=== PATIENT | female | born 1975 | race Caucasian/White ===

== ENCOUNTER 2016-09-28 16:12 | Emergency (ER) | payer BC ==
[~2016-09-28] VITALS: Ht 162.6 cm; Wt 74.0 kg
[2016-09-28 16:16] VITALS: Ht 162.6 cm; Wt 74.0 kg
[2016-09-28] MEDS ORDERED: HYDROCODONE/APAP (5/325) TAB PO ONE (17:30)
[2016-09-28 17:36] LABS: ADD SCAN DIFF NO
[2016-09-28 17:38] LABS: BASOPHIL # 0.1 10^3/ul (0.0-0.1); BASOPHILS % 0.9 % (0.0-2.0); EOSINOPHILS # 0.2 10^3/ul (0.0-0.5); EOSINOPHILS % 2.9 % (0.0-7.0); HEMATOCRIT 37.3 % (37.0-47.0); LYMPHOCYTES % 25.4 % (15.0-51.0); MEAN CORPUSCULAR HEMOGLOBIN 28.5 pg (29.0-33.0); MEAN CORPUSCULAR HGB CONC 32.2 g/dl (32.0-37.0); MEAN CORPUSCULAR VOLUME 88.6 fl (82.0-101.0); MEAN PLATELET VOLUME 10.7 fl (7.4-10.4); MONOCYTE # 0.5 10^3/ul (0.3-0.9); MONOCYTES % 5.8 % (0.0-11.0); NEUTROPHIL # 5.1 10^3/ul (1.6-7.5); NEUTROPHILS % 64.9 % (39.0-77.0); PLATELET COUNT 257 10^3/UL (140-415); RED BLOOD COUNT 4.21 10^6/ul (4.20-5.40); RED CELL DISTRIBUTION WIDTH 13.3 % (11.5-14.5); WHITE BLOOD COUNT 7.9 10^3/ul (4.8-10.8)
[2016-09-28 18:03] LABS: ADD UMIC YES; URINE BILIRUBIN (Dip) NEGATIVE (NEGATIVE); URINE BLOOD (Dip) 3+ (NEGATIVE); URINE COLOR LT. YELLOW (YELLOW); URINE GLUCOSE (Dip) NEGATIVE (NEGATIVE); URINE KETONES (Dip) NEGATIVE (NEGATIVE); URINE LEUKOCYTE ESTERASE (Dip) NEGATIVE (NEGATIVE); URINE NITRITE (Dip) NEGATIVE (NEGATIVE); URINE TOTAL PROTEIN (Dip) NEGATIVE (NEGATIVE); URINE UROBILINOGEN (Dip) 0.2 E.U./dL (0.1-1.0)
[2016-09-28 18:03] LABS: ALBUMIN 4.3 g/dl (3.3-4.9)
[2016-09-28 18:04] LABS: POTASSIUM 4.8 mmol/L (3.5-5.1)
[2016-09-28 18:06] LABS: ALBUMIN/GLOBULIN RATIO 1.3; BILIRUBIN,INDIRECT 0.1 mg/dl (0-1.1); BILIRUBIN,TOTAL 0.1 mg/dl (0.2-1.3); CREATININE 0.73 mg/dl (0.44-1.00); TOTAL PROTEIN 7.6 g/dl (6.1-8.1)
[2016-09-28 18:07] LABS: CALCIUM 9.5 mg/dl (8.4-10.2)
[2016-09-28 18:21] LABS: SQUAMOUS EPITHELIAL CELL,UR FEW
[2016-09-28 18:22] LABS: BACTERIA,URINE FEW
--- NOTE | 2016-09-28 18:49 | ERD ---
ER Documentation Chief Complaint Date/Time DATE: 09/28/16 TIME: 18:49 Chief Complaint "L SIDE BODY PAIN, FROM ABDOMEN TO LEG FOR PAST WEEK" HPI This 41-year-old female who presents to the emergency department today complaining of left-sided abdominal pain. States she also has some numbness and tingling in her left leg. States she also has some facial numbness on the left side of her face. States that this started today but she did have similar symptoms 2 weeks ago that went away. Denies any fevers or chills, vomiting, diarrhea. States she is currently on her menstrual cycle. ROS All systems reviewed and are negative except as per history of present illness. Medications Home Meds Active Scripts Acetaminophen* (Tylophen*) 500 Mg Capsule, 1 CAP PO Q6H Y for PAIN AND OR ELEVATED TEMP, #30 CAP Prov:MARILYN MUELLER PA-C 09/28/16 Naproxen* (Naprosyn*) 500 Mg Tablet, 500 MG PO BID Y for PAIN AND/OR INFLAMMATION, #30 TAB Prov:MARILYN MUELLER PA-C 09/28/16 Tramadol HCl (Tramadol HCl) 50 Mg Tablet, 50 MG PO Q4 Y for PAIN, #20 TAB Prov:MARILYN MUELLER PA-C 09/28/16 Allergies Allergies: Coded Allergies: No Known Allergy (Unverified , 01/06/14) PMhx/Soc History of Surgery: Yes (tube ligation?) Anesthesia Reaction: No Hx Neurological Disorder: No Hx Respiratory Disorders: No Hx Cardiac Disorders: Yes (MD 2013) Hx Psychiatric Problems: No Hx Miscellaneous Medical Probl: No Hx Alcohol Use: No Hx Substance Use: No Hx Tobacco Use: No Physical Exam Vitals Vital Signs Date Time Temp Pulse Resp B/P Pulse Ox O2 Delivery O2 Flow Rate FiO2 09/28/16 16:16 98.6 72 18 127/79 98 Physical Exam Const: No acute distress Head: Atraumatic Eyes: Normal Conjunctiva. PERRLA. EOM intact. ENT: Normal External Ears, Nose and Mouth. Neck: Full range of motion..~ No meningismus. Resp: Clear to auscultation bilaterally Cardio: Regular rate and rhythm, no murmurs Abd: Soft, left lower quadrant and left-sided pelvic pain non distended. Normal bowel sounds. No right lower quadrant pain. No tenderness McBurney's Skin: No petechiae or rashes Back: Left-sided paraspinal tenderness. No midline tenderness. Ext: No cyanosis, or edema Neur: Awake and alert. Cranial nerves II through XII intact. No gait ataxia. Psych: Normal Mood and Affect Result Diagram: 09/28/16 1728 09/28/16 1728 Results 24 hrs Laboratory Tests Test 09/28/16 17:28 09/28/16 17:43 White Blood Count 7.910^3/ul Red Blood Count 4.2110^6/ul Hemoglobin 12.0g/dl Hematocrit 37.3% Mean Corpuscular Volume 88.6fl Mean Corpuscular Hemoglobin 28.5pg Mean Corpuscular Hemoglobin Concent 32.2g/dl Red Cell Distribution Width 13.3% Platelet Count 78527^3/UL Mean Platelet Volume 10.7fl Neutrophils % 64.9% Lymphocytes % 25.4% Monocytes % 5.8% Eosinophils % 2.9% Basophils % 0.9% Nucleated Red Blood Cells % 0.0/100WBC Neutrophils # 5.110^3/ul Lymphocytes # 2.010^3/ul Monocytes # 0.510^3/ul Eosinophils # 0.210^3/ul Basophils # 0.110^3/ul Nucleated Red Blood Cells # 0.010^3/ul Sodium Level 140mmol/L Potassium Level 4.8mmol/L Chloride Level 102mmol/L Carbon Dioxide Level 27mmol/L Anion Gap 16 Blood Urea Nitrogen 21mg/dl Creatinine 0.73mg/dl Glucose Level 88mg/dl Calcium Level 9.5mg/dl Total Bilirubin 0.1mg/dl Direct Bilirubin 0.00mg/dl Indirect Bilirubin 0.1mg/dl Aspartate Amino Transf (AST/SGOT) 25IU/L Alanine Aminotransferase (ALT/SGPT) 31IU/L Alkaline Phosphatase 89IU/L Total Protein 7.6g/dl Albumin 4.3g/dl Globulin 3.30g/dl Albumin/Globulin Ratio 1.30 Lipase 89U/L Urine Color LT. YELLOW Urine Clarity CLEAR Urine pH 6.0 Urine Specific [place] <=1.005 Urine Ketones NEGATIVE Urine Nitrite NEGATIVE Urine Bilirubin NEGATIVE Urine Urobilinogen 0.2 E.U./dL Urine Leukocyte Esterase NEGATIVE Urine Microscopic RBC 10-25/HPF Urine Microscopic WBC NONE SEEN/HPF Urine Squamous Epithelial Cells FEW Urine Bacteria FEW Urine Hemoglobin 3+ Urine Glucose NEGATIVE% Urine Total Protein NEGATIVE Current Medications Medications (Trade) Dose Ordered Sig/Bert Route PRN Reason Start Time Stop Time Status Last Admin Dose Admin Acetaminophen/ Hydrocodone Bitart ([place] (5/325)) 1 tab ONCE ONCE PO 09/28/16 17:30 09/28/16 17:31 DC 09/28/16 17:32 DIAGNOSTIC IMAGING REPORT Patient: GRETA SUAREZ : 1975 Age: 41 Sex: F MR #: [id number] DOS: 09/28/16 1711 Ordering MD: MARILYN MUELLER PA-C Location: [facility] Room/Bed: PROCEDURE: CT abdomen and pelvis without contrast. CLINICAL INDICATION: Abdominal pain TECHNIQUE: CT scan of the abdomen and pelvis without contrast was performed. Sagittal and coronal reformatted images were obtained from the axial source images. CTDI = 13.06 mGy; DLP = 669.21 mGy-cm COMPARISON: None. FINDINGS: Visualized lower thorax: Trace dependent subsegmental atelectasis of the lower lobes is present. There is no evidence for pleural effusion. Liver, gallbladder, pancreas and spleen: The liver is normal and size, contour and attenuation. There is no evidence for a liver mass or ductal dilatation. The gallbladder is unremarkable. No common bile duct abnormality is demonstrated. The pancreas is unremarkable. The spleen is normal in size. Adrenal glands and genitourinary system: The adrenal glands are normal bilaterally. The kidneys are normal and size, contour and attenuation with no evidence for solid masses, calculi or hydronephrosis, an incidental simple cyst of the right upper pole measures approximately 2.7 cm. The ureters are unremarkable. No urinary bladder abnormality is demonstrated. A Nabothian cyst of the cervix is visualized, the uterus is otherwise unremarkable. A probable small right ovarian/adnexal cyst of 9 mm is suggested. No free fluid within the cul-de-sac is seen. Gastrointestinal system: The stomach is normal in caliber with no abnormality of significance. The small bowel is normal in caliber with no ileus, obstruction or wall thickening. The appendix and surrounding fat are within the limits of normal. The colon shows no evidence for wall thickening or acute abnormality. There is no evidence for colitis or diverticulitis. Peritoneum, retroperitoneum, lymph nodes and vessels: The abdominal aorta is normal in caliber. There is no evidence for atherosclerotic calcification. The inferior vena cava is unremarkable. There is no evidence for adenopathy or mass. There is no ascites. No pneumoperitoneum is present. Osseous structures and musculoskeletal findings: There is no fracture, lytic or blastic lesion. Severe degenerative disk narrowing at L5-S1 is present. Note is made of Tarlov cysts of the sacrum No muscular abnormality or soft tissue pathology is present. RPTAT:HJJR IMPRESSION: 1. No evidence of acute intra-abdominal or intrapelvic pathology. 2. Incidental right renal cyst. 3. Probable right ovarian/adnexal cyst of 9 mm. 4. Suspected incidental Nabothian cyst. 5. Degenerative disk disease at L5-S1, Tarlov cysts of the sacrum. Physician Kacie Date Time Electronically viewed and signed by Estuardo Choi Physician on 09/28/2016 20:03 JR/ CC: MARLIYN MUELLER PA-C/MDM Is a 41-year-old female presents to the emergency department today with multiple complaints. Patient was complaining of facial numbness on the left side of her face as well as left leg numbness. Patient has no focal neurologic deficits. She has no gait ataxia. Do not feel the patient requires a head CT scan at this time. Low suspicion for acute hemorrhage, mass, abscess. Low suspicion for Zhou's palsy. Patient is very talkative in the exam room and was laughing at various points. Patient's leg paresthesia may be related to back pain however she has had no trauma and I do not feel that she requires imaging at this time. Patient is able to ambulate without difficulty Patient's abdominal exam shows some tenderness on the left side of her abdomen and into the left side of her pelvis. She indicates she is currently on her menstrual cycle. Patient was also complaining of flank pain that radiated around to her left side of her abdomen and therefore I did obtain laboratory work as well as a UA and CT abdomen pelvis noncontrast Laboratory work shows no elevated white blood cell count. She is not anemic. Platelets are within normal limits. Electrolytes are within normal limits. Glucose within normal limits. Liver functions within normal limits. Lipase within normal limits. UA is negative for infection. Urine test is negative CT abdomen pelvis noncontrast shows no evidence of acute intra-abdominal intrapelvic pathology. There is incidental right renal cyst. There is a probable right ovarian adnexal cyst of 9 mm. There is a suspected incidental nabothian cyst. There is degenerative disc disease L5 and S1. Patient has left sided abdominal and pelvic pain of uncertain etiology. There is no evidence to suggest acute surgical abdomen. Her paresthesia in her leg is possibly due to degenerative disc disease. Patient was given [place] for pain. Patient was given a prescription for tramadol , Naprosyn and Tylenol for pain. At this time the patient is stable for discharge and outpatient management. Patient should follow up with their PCP in the next 1-2 days. They may return to the emergency department sooner for any persistent or worsening of symptoms. Patient understood and agreed with the plan. Departure Diagnosis: Primary Impression: Abdominal pain Abdominal location: left lower quadrant Qualified Code: R10.32 - Left lower quadrant pain Additional Impression: Paresthesia Condition: Fair MARILYN MUELLER PA-C September 28, 2016 18:49
--- NOTE | 2016-09-28 20:03 | RADRPT ---
PROCEDURE: CT abdomen and pelvis without contrast. CLINICAL INDICATION: Abdominal pain TECHNIQUE: CT scan of the abdomen and pelvis without contrast was performed. Sagittal and coronal reformatted images were obtained from the axial source images. CTDI = 13.06 mGy; DLP = 669.21 mGy-c m COMPARISON: None. FINDINGS: Visualized lower thorax: Trace dependent subsegmental atelectasis of the lower lobes is present. T here is no evidence for pleural effusion. Liver, gallbladder, pancreas and spleen: The liver is normal and size, contour and attenuation. Th ere is no evidence for a liver mass or ductal dilatation. The gallbladder is unremarkable. No comm on bile duct abnormality is demonstrated. The pancreas is unremarkable. The spleen is normal in si ze. Adrenal glands and genitourinary system: The adrenal glands are normal bilaterally. The kidneys are normal and size, contour and attenuation with no evidence for solid masses, calculi or hydronephros is, an incidental simple cyst of the right upper pole measures approximately 2.7 cm. The ureters ar e unremarkable. No urinary bladder abnormality is demonstrated. A Nabothian cyst of the cervix is visualized, the uterus is otherwise unremarkable. A probable small right ovarian/adnexal cyst of 9 mm is suggested. No free fluid within the cul-de-sac is seen. Gastrointestinal system: The stomach is normal in caliber with no abnormality of significance. The small bowel is normal in caliber with no ileus, obstruction or wall thickening. The appendix and s urrounding fat are within the limits of normal. The colon shows no evidence for wall thickening or acute abnormality. There is no evidence for colitis or diverticulitis. Peritoneum, retroperitoneum, lymph nodes and vessels: The abdominal aorta is normal in caliber. The re is no evidence for atherosclerotic calcification. The inferior vena cava is unremarkable. There is no evidence for adenopathy or mass. There is no ascites. No pneumoperitoneum is present. Osseous structures and musculoskeletal findings: There is no fracture, lytic or blastic lesion. Sev ere degenerative disk narrowing at L5-S1 is present. Note is made of Tarlov cysts of the sacrum No muscular abnormality or soft tissue pathology is present. RPTAT:HJJR IMPRESSION: 1. No evidence of acute intra-abdominal or intrapelvic pathology. 2. Incidental right renal cyst. 3. Probable right ovarian/adnexal cyst of 9 mm. 4. Suspected incidental Nabothian cyst. 5. Degenerative disk disease at L5-S1, Tarlov cysts of the sacrum. Estuardo Choi Physician Date Time Electronically viewed and signed by Estuardo Choi, Physician on 09/28/2016 20:03 JR/
[2016-09-28] MEDS ORDERED: TRAM50TA2 PO (20:31)
[2016-09-28] MEDS ORDERED: ACET500C5 PO (20:32)
[2016-09-28] MEDS ORDERED: NAPR-260 PO (20:32)
[2016-09-28 20:40] VITALS: BP 133/73; PULSE 60; RESP 20; TEMP 98.2
== END 2016-09-28 20:41 | disposition home or self-care (01) ==
LOC: FTE 16:12
DX: R10.32 Left lower quadrant pain (principal); R20.2 Paresthesia of skin; R10.2 Pelvic and perineal pain
CPT/HCPCS: 74176; 80053; 81001; 83690; 85025; 99284; Z7610; 81003